=== PATIENT | male | born 1935 | race Caucasian/White ===

== ENCOUNTER → 2016-08-07 | Outpatient (CLI) | payer MEDICARE ==
[~2016-08-07] MED LIST: BACTRIM DS 8001 TAB PO; CIPRO 500MG TA500 MG PO; CIPRO750 MG PO; COLACE 100100 MG/CAP PO; FLOMAX 0.40.4 MG/CAP PO; IPRATROPIUM BROM3 M1 IH; LEVAQUIN 750MG750 M1 PO; MULTIPLE VITAMI1 TA5 PO; NORCO 325 MG-51 TAB PO; PREDNISONE20 MG PO; PYRIDIUM200 M1 PO
== END ==
LOC: COL.VAS 10:17
DX: I34.0 Nonrheumatic mitral (valve) insufficiency (principal); J44.9 Chronic obstructive pulmonary disease, unspecified

== ENCOUNTER → 2017-07-06 | Outpatient (CLI) | payer MEDICARE | LOC: COL.RAD 06-28 08:00 | DX: Z85.51 Personal history of malignant neoplasm of bladder (principal); Z93.6 Other artificial openings of urinary tract status | CPT/HCPCS: Q9967 ==

== ENCOUNTER 2017-08-01 11:29 | Day surgery (SDC) | payer MEDICARE ==
[~2017-08-01] VITALS: Ht 182.9 cm; Wt 84.3 kg
[2017-08-01 12:04] VITALS: BP 128/81; PULSE 68; TEMP 97.5
[2017-08-01] MEDS ORDERED: BREO IH (12:06)
[2017-08-01] MEDS ORDERED: INCRUSE EL62.5 MCG/A IH (12:06)
[2017-08-01 17:05] VITALS: BP 129/64; PULSE 65; TEMP 98
[2017-08-01 17:20] VITALS: BP 139/90; PULSE 66
== END 2017-08-01 17:45 | disposition home or self-care (01) ==
LOC: SDCO 11:29
DX: N13.30 Unspecified hydronephrosis (principal); Z85.51 Personal history of malignant neoplasm of bladder; Z87.891 Personal history of nicotine dependence; Z80.41 Family history of malignant neoplasm of ovary
CPT/HCPCS: C1769; J0360; J0690; J1100; J1170; J2405; J2704; J3010; J7120; Q9967

== ENCOUNTER → 2018-02-25 | Outpatient (CLI) | payer MEDICARE ==
[~2018-02-25] MED LIST changes: +BREO IH; +INCRUSE EL62.5 MCG/A IH
== END ==
LOC: COL.RAD 09:59
DX: Z85.51 Personal history of malignant neoplasm of bladder (principal)
CPT/HCPCS: A9562

== ENCOUNTER 2019-05-27 10:16 | Day surgery (SDC) | payer MEDICARE ==
[~2019-05-27] VITALS: Ht 182.9 cm; Wt 84.0 kg
[2019-05-27] MEDS ORDERED: MULTI VITAMINS1 TAB PO (11:26)
[2019-05-27 12:00] VITALS: BP 121/73; PULSE 92; TEMP 97.8
[2019-05-27 13:17] LABS: HEMATOCRIT 41.7 % (42.0-52.0); HEMOGLOBIN 13.1 g/dl (13.5-18.0); MEAN CELL VOLUME 98 fl (80.0-100.0); MEAN CORPUSCULAR HEMOGLOBIN 31 pg (27.0-31.0); MEAN CORPUSCULAR HGB CONC 31 g/dl (33.0-37.0); MEAN PLATELET VOLUME 9.3 fl (7.4-10.4); PLATELET COUNT 187 K/mm3 (130-400); RED BLOOD COUNT 4.24 M/mm3 (4.20-5.60); REDCELL DISTRIBUTION WIDTH-CV 13.5 % (11.5-14.5)
[2019-05-27 13:31] LABS: CALCIUM 9.2 mg/dL (8.4-10.2); CREATININE, serum 1.39 (0.66-1.25); POTASSIUM 4.7 mmol/L (3.4-5.0)
[2019-05-27 15:13] VITALS: BP 138/81; PULSE 74; TEMP 97.1
--- NOTE | 2019-05-27 15:13 | NUR ---
Patient arrives back to [facility] alert, denies pain or nausea. Patient monitor and O2 per nasal cannula applied. Vitals stable. Patient's family brought to bedside.
--- NOTE | 2019-05-27 15:20 | NUR ---
Patient given juice, muffin and apple sauce at this time.
[2019-05-27 15:30] VITALS: BP 150/81; PULSE 85
[2019-05-27] MEDS ORDERED: CIPRO 500MG TA500 MG PO (15:44)
--- NOTE | 2019-05-27 15:45 | NUR ---
Patient tolerates food and drink without any nausea. Denies pain. Oxygen turned off at this time. Vitals stable.
[2019-05-27 16:00] VITALS: PULSE 80
--- NOTE | 2019-05-27 16:00 | NUR ---
Dismissal instructions gone over with patient and patient's spouse. Both verbalize understanding and all questions answered. Patient is going to take his afternoon inhaler once he gets into their vehicle. Vitals stable. Patient educated to continue to deep breath on the way home and to recheck his SpO2 with his home monitor once he gets back home this evening.
--- NOTE | 2019-05-27 16:05 | NUR ---
Patient discharged to private vehicle per wheelchair without any complications. Patient and family leave thanking staff for services.
== END 2019-05-27 16:05 | disposition home or self-care (01) ==
LOC: SDCO 10:16
PROVIDERS: Urology
DX: R31.0 Gross hematuria (principal); N28.89 Other specified disorders of kidney and ureter; N04.8 Nephrotic syndrome with other morphologic changes; M19.90 Unspecified osteoarthritis, unspecified site; J44.9 Chronic obstructive pulmonary disease, unspecified; Z87.891 Personal history of nicotine dependence; Z90.6 Acquired absence of other parts of urinary tract; Z80.41 Family history of malignant neoplasm of ovary
CPT/HCPCS: C1769; J0690; J1100; J2405; J2704; J3010; J7120; Q9967

== ENCOUNTER → 2019-08-20 | Outpatient (CLI) | payer MEDICARE ==
[~2019-08-20] MED LIST changes: +MULTI VITAMINS1 TAB PO
== END ==
LOC: COL.RAD 11:04
DX: R19.09 Other intra-abdominal and pelvic swelling, mass and lump (principal)

== ENCOUNTER 2020-01-27 09:59 | Emergency (ER) | payer MEDICARE ==
[~2020-01-27] VITALS: Ht 182.9 cm; Wt 81.8 kg
[2020-01-27 11:10] LABS: COLLECTION METHOD CLEAN CATCH
[2020-01-27 11:27] LABS: MUCOUS Present /lpf; PH 6 (5-8); SQUAMOUS EPITHELIAL 0-2 /hpf; URINE APPEARANCE Hazy; URINE BACTERIA Occasional /hpf; URINE BILIRUBIN Negative (NEGATIVE); URINE BLOOD 1+ (NEGATIVE); URINE COLOR Yellow; URINE GLUCOSE Negative (NEGATIVE); URINE KETONE Negative (NEGATIVE); URINE LEUKOCYTE ESTERASE 3+ (NEGATIVE); URINE NITRATE Negative (NEGATIVE); URINE PROTEIN(semi-quant) 1+ (NEGATIVE); URINE UROBILINOGEN Negative (NEGATIVE)
[2020-01-27 11:32] LABS: BASO % 0.4 % (0.0-2.0); EOS % 0.1 % (0-4.0); GRAN # 6.5 (1.4-6.5); HEMOGLOBIN 17.1 g/dl (13.5-18.0); LYMPH # 0.6 (1.2-3.4); LYMPH % 7.2 % (20.0-51.0); MEAN CELL VOLUME 96 fl (80.0-100.0); MEAN CORPUSCULAR HEMOGLOBIN 31 pg (27.0-31.0); MEAN CORPUSCULAR HGB CONC 32 g/dl (33.0-37.0); MEAN PLATELET VOLUME 9.7 fl (7.4-10.4); MONO # 0.9 (0.1-0.6); MONO % 11.1 % (1.7-9.3); PLATELET COUNT 228 K/mm3 (130-400); RED BLOOD COUNT 5.58 M/mm3 (4.20-5.60); REDCELL DISTRIBUTION WIDTH-CV 13.3 % (11.5-14.5)
[2020-01-27 11:39] LABS: HEMATOCRIT 53.8 % (42.0-52.0)
[2020-01-27 11:55] LABS: CALCIUM 10.1 mg/dL (8.4-10.2); CREATININE, serum 1.76 (0.66-1.25); POTASSIUM 5.1 mmol/L (3.4-5.0)
[2020-01-27] MEDS ORDERED: ZOFRAN 4MG T4 MG/TAB PO (14:17)
[2020-01-27 14:33] VITALS: BP 123/74; PULSE 92; TEMP 98.9
[2020-01-27] MEDS ORDERED: CEPHALEXIN500 M1 PO (14:35)
[2020-01-29] MEDS ORDERED: BACTRIM DS 8001 TAB PO (15:34)
== END 2020-01-27 14:45 | disposition home or self-care (01) ==
LOC: COL.ER 09:59
PROVIDERS: Emergency Medicine
DX: N39.0 Urinary tract infection, site not specified (principal); K56.609 Unspecified intestinal obstruction, unspecified as to partial versus complete obstruction
CPT/HCPCS: J7030